=== PATIENT | female | born 1940 | race Caucasian/White ===

== ENCOUNTER 2021-08-16 19:13 | Emergency (ER) | payer MEDICARE, BC ==
[~2021-08-16] VITALS: Ht 170.2 cm; Wt 98.0 kg
[~2021-08-16 19:13] MED LIST: APIX5TAB3 PO; ATOR40TA71 PO; CARV-50 PO; GABA-532 PO; HYDR-4353 PO; LISI10TA27 PO; MAGN400C PO; MULT-620 PO; PANT-47 PO
[2021-08-16 19:19] VITALS: BP 108/66
[2021-08-16 19:46] LABS: BASOPHILS % (AUTO) 0.5 % (0-1); EOSINOPHILS # (AUTO) 0.1 X10'3 (0-0.9); EOSINOPHILS % (AUTO) 1.3 % (0-6); HEMATOCRIT 36.3 % (35.0-45.0); HEMOGLOBIN 12.4 g/dl (12.0-16.0); LYMPHOCYTES # (AUTO) 1.1 X10'3 (1.1-4.8); LYMPHOCYTES % (AUTO) 20.9 % (21-51); MEAN CORPUSCULAR HEMOGLOBIN 34.4 PG (27.0-31.0); MEAN CORPUSCULAR HGB CONC 34.1 g/dL (33.0-36.5); MEAN CORPUSCULAR VOLUME 100.9 FL (78-98); MEAN PLATELET VOLUME 7.5 FL (7.4-10.4); MONOCYTES # (AUTO) 0.6 X10'3 (0-0.9); MONOCYTES % (AUTO) 11.5 % (2-12); NEUTROPHILS # (AUTO) 3.5 X10'3 (1.8-7.7); NEUTROPHILS % (AUTO) 65.8 % (42-75); PLATELET COUNT 239 X10'3 (140-440); RED CELL DISTRIBUTION WIDTH 13.5 % (11.5-14.5); WHITE BLOOD COUNT 5.4 X10'3 (4.5-11.0)
[2021-08-16 20:01] LABS: ALANINE AMINOTRANSFERASE 47 U/L (12-78); ALBUMIN 3.6 G/DL (3.4-5.0); ALKALINE PHOSPHATASE 106 IU/L (46-116); ANION GAP 11 (8-16); ASPARTATE AMINO TRANSFERASE 51 U/L (10-37); BILIRUBIN,TOTAL 0.3 MG/DL (0.1-1.0); BLOOD UREA NITROGEN 26 MG/DL (7-18); BUN/CREATININE RATIO 18.2 (6.6-38.0); CALCIUM 8.7 MG/DL (8.5-10.1); CHLORIDE 102 MMOL/L (99-107); CREATININE 1.43 MG/DL (0.40-0.90); GLUCOSE 96 MG/DL (70-104); POTASSIUM 3.6 MMOL/L (3.5-5.1); SODIUM 137 MMOL/L (135-145); TOTAL CARBON DIOXIDE 24.4 MMOL/L (24-32); TOTAL PROTEIN 7.2 G/DL (6.4-8.2); eGFR 35 ML/MIN
[2021-08-16] MEDS ORDERED: normal saline 500ml IV soln 500 ML IV ONE (21:15)
[2021-08-16 21:39] LABS: CLARITY,URINE CLEAR (Clear); COLOR,URINE YELLOW (Yellow); GLUCOSE, URINE NEGATIVE (Neg); KETONES,URINE NEGATIVE (Neg); LEUKOCYTE ESTERASE ,URINE SMALL (Neg); NITRITES, URINE NEGATIVE (Neg); OCCULT BLOOD,URINE SMALL (Neg); PROTEIN,URINE NEGATIVE (Neg); UROBILINOGEN,URINE 0.2 E.U/dL (0.2-1.0)
[2021-08-16 21:43] LABS: UA COLLECTION TYPE STRAIGHT CATH
[2021-08-16 21:45] LABS: HYALINE CASTS 0-3 /LPF (NEGATIVE)
[2021-08-16 21:46] LABS: BACTERIA,URINE 2+ /HPF (Neg); FINE GRANULAR CAST 0-3 /LPF (NEGATIVE); SQUAMOUS EPITHELIAL CELL,UR FEW /LPF (FEW); WBC,URINE 50-100 /HPF (0-4)
[2021-08-16] MEDS ORDERED: cephalexin 250mg capsule PO ONE (22:40)
[2021-08-16] MEDS ORDERED: normal saline 1000ML IV soln IVB ONE (22:40)
[2021-08-16] MEDS ORDERED: nitrofuran monohydrate/nitrofuran macrocrysal 100 MG (MacroBID) capsule PO ONE (22:40)
[2021-08-16] MEDS ORDERED: CEPH-585 PO (23:34)
--- NOTE | 2021-08-19 14:50 | NUR ---
Per Jhon Madison patient needs a change in antibiotics from keflex to Augmentin 875 mg PO BID x5 days total 10 days with 0 refills. Per daughter patient needs rx called in to [facility] on [address], daughter is aware that pharmacy is closed and they will fern picker tomorrow. Called in prescription and left a voicemail with all information.
== END 2021-08-17 | disposition home or self-care (01) ==
LOC: ER 19:13
DX: M62.81 Muscle weakness (generalized) (principal); I11.0 Hypertensive heart disease with heart failure; I50.9 Heart failure, unspecified; E78.00 Pure hypercholesterolemia, unspecified; K21.9 Gastro-esophageal reflux disease without esophagitis; G89.29 Other chronic pain; Z86.718 Personal history of other venous thrombosis and embolism; Z79.899 Other long term (current) drug therapy; Z79.01 Long term (current) use of anticoagulants
CPT/HCPCS: 36415; 70450; 71045; 80053; 81001; 83605; 83880; 84145; 84484; 85025; 87040; 87077; 87088; 87186; 93005; 99285; J7030; J7040; J7050

== ENCOUNTER 2021-12-27 18:13 | Emergency (ER) | payer BC, MEDICARE ==
[~2021-12-27] VITALS: Ht 167.6 cm; Wt 98.0 kg
[2021-12-27 18:52] VITALS: BP 133/68
--- NOTE | 2021-12-27 19:55 | NUR ---
PLEASE CALL WITH ANY INFORMATION... LAUREN [phone]
== END 2021-12-28 07:16 | disposition left against medical advice (07) ==
LOC: ER 18:14
DX: R62.7 Adult failure to thrive (principal); Z53.21 Procedure and treatment not carried out due to patient leaving prior to being seen by health care provider

== ENCOUNTER 2022-06-05 14:15 | Outpatient (CLI) | payer MEDICARE | END 2022-06-05 23:59 | disposition home or self-care (01) | LOC: CARD DIAG 14:15 | PROVIDERS: ATTEND Internal Medicine Cardiovascular Disease | DX: R06.02 Shortness of breath (principal); I25.10 Atherosclerotic heart disease of native coronary artery without angina pectoris; I10 Essential (primary) hypertension | CPT/HCPCS: 93306 ==